=== PATIENT | male | born 1955 | race Caucasian/White ===

== ENCOUNTER 2019-11-13 12:26 | Emergency (ER) | payer BC ==
[2019-11-13] MEDS ORDERED: Ondansetron 4 MG/2 ML SDV IVPUSH ONE (12:45)
[2019-11-13] MEDS ORDERED: Sodium Chloride 0.9% 1,000 ML IV ONE (12:45)
[2019-11-13] MEDS ORDERED: Ondansetron 4 MG/2 ML SDV ONE ×2 (13:20→13:22)
[2019-11-13] MEDS ORDERED: NS + KCl 20mEq/L 1,000 ML ONE (13:39)
[2019-11-13] MEDS ORDERED: Potassium Chloride 20 MEQ Tab.ER PO ONE (13:44)
[2019-11-13] MEDS ORDERED: GI Cocktail Oral Solution 30 ML PO ONE (13:44)
[2019-11-13] MEDS: NS + KCl 20mEq/L 1,000 ML IV SCH ×2 (14:40→16:48)
[2019-11-13] MEDS ORDERED: diphenhydrAMINE 50 MG/ML SDV IVPUSH ONE (17:03)
[2019-11-13] MEDS ORDERED: HYDROmorphone 2 MG/ML Syringe IVPUSH ONE (17:03)
[2019-11-13] MEDS ORDERED: Loperamide 2 MG Cap PO ONE (17:04)
[2019-11-13] MEDS ORDERED: NS + KCl 20mEq/L 1,000 ML IV SCH (17:15)
[2019-11-13] MEDS ORDERED: HYDROmorphone 2 MG/ML SDV ONE (17:37)
[2019-11-13] MEDS ORDERED: diphenhydrAMINE 50 MG/ML SDV ONE (17:39)
[2019-11-13] MEDS ORDERED: Loperamide 2 MG Cap ONE (17:51)
--- NOTE | 2019-11-13 17:51 | EDM.PDOC ---
ED HPI GENERAL MEDICAL PROBLEM - General Chief Complaint: General Stated Complaint: DIARRHEA Time Seen by Provider: 11/13/19 12:40 - Related Data Allergies Allergy/AdvReac Type Severity Reaction Status Date / Time No Known Allergies Allergy Verified 11/13/19 12:30 Home Meds: Home Meds Ranitidine [Zantac] 75 mg PO DAILY 11/13/19 [History] Past Medical History Neurological History: Reports: Concussion Oncologic (Cancer) History: Reports: Other (See Below) Other Oncologic History: "Small spot on prostate"- states the Dr said they are just going to watch it Social & Family History - Tobacco Use Smoking Status *Q: Never Smoker Second Hand Smoke Exposure: No - Caffeine Use Caffeine Use: Reports: Coffee - Recreational Drug Use Recreational Drug Use: No ED ROS GENERAL - Review of Systems Review Of Systems: Comprehensive ROS is negative, except as noted in HPI. ED EXAM, GENERAL - Physical Exam Exam: See Below Exam Limited By: No Limitations General Appearance: Alert, WD/WN, No Apparent Distress Eye Exam: Bilateral Eye: EOMI, PERRL Ears: Normal External Exam, Hearing Grossly Normal Nose: Normal Inspection Throat/Mouth: Normal Inspection, Normal Lips, Other (mucosa on the dry side) Head: Atraumatic, Normocephalic Neck: Normal Inspection, Supple, Non-Tender, Full Range of Motion Respiratory/Chest: No Respiratory Distress, Lungs Clear, Normal Breath Sounds Cardiovascular: Regular Rate, Rhythm, No Gallop, No Murmur, No Rub GI/Abdominal: Soft, Non-Tender, Abnormal Bowel Sounds (hyperactive bowel sounds) Extremities: Non-Tender, No Pedal Edema, Normal Capillary Refill Neurological: Alert, Oriented, CN II-XII Intact, Normal Cognition, Normal Gait, No Motor/Sensory Deficits Psychiatric: Normal Affect, Normal Mood Skin Exam: Warm, Dry Lymphatic: No Adenopathy Course - Vital Signs Text/Narrative:: Yomi responded well to IV fluid repletion and electrolyte replacement. Discussed management as outpatient and reliable to return with persistent/ worsening sx's. Last Recorded V/S: Last Vital Signs Temp 99.2 F 11/13/19 12:26 Pulse 112 H 11/13/19 12:26 Resp 22 H 11/13/19 12:26 BP 135/90 11/13/19 12:26 Pulse Ox 96 11/13/19 12:26 - Orders/Labs/Meds Orders: Active Orders 24 hr Category Date Time Status NS + KCl 20mEq/L [Normal Saline with 20 mEq KCl] 1,000 Med 11/13/19 13:45 Active ml IV ASDIRECTED NS + KCl 20mEq/L [Normal Saline with 20 mEq KCl] 1,000 Med 11/13/19 17:15 Active ml IV ASDIRECTED Medication Orders Potassium Chloride/Sodium Chloride (Normal Saline With 20 Meq Kcl) 1,000 mls @ 500 mls/hr IV ASDIRECTED BARRY Last Admin: 11/13/19 16:48 Dose: 500 mls/hr Infusion: 11/13/19 16:40 Dose: 500 mls/hr Admin: 11/13/19 14:40 Dose: 500 mls/hr Potassium Chloride/Sodium Chloride (Normal Saline With 20 Meq Kcl) 1,000 mls @ 500 mls/hr IV ASDIRECTED [facility] Labs: Laboratory Tests 11/13/19 11/13/19 11/13/19 Range/Units 12:44 12:44 12:46 WBC (4.0-11.0) K/uL RBC (4.50-6.50) M/uL Hgb (13.0-18.0) g/dL Hct (40.0-54.0) % MCV (76-96) fL MCH (27.0-32.0) pg MCHC (31.0-35.0) g/dL RDW (11.0-16.0) % Plt Count (150-400) K/uL MPV (6.0-10.0) fL Neut % (Auto) (45.0-70.0) % Lymph % (Auto) (20.0-40.0) % Power % (Auto) (3.0-10.0) % Eos % (Auto) (1.0-5.0) % Baso % (Auto) (0.0-0.5) % Neut # (Auto) (2.00-7.50) K/uL Lymph # (Auto) (1.50-4.00) K/uL Power # (Auto) (0.20-0.80) K/uL Eos # (Auto) (0.04-0.40) K/uL Baso # (Auto) (0.02-0.10) K/uL Sodium 129 L (136-145) mmol/L Potassium 2.7 L* (3.5-5.1) mmol/L Chloride 92 L (98-107) mmol/L Carbon Dioxide 28.6 (21.0-32.0) mmol/L Anion Gap 11.1 (5.0-15.0) mmol/L BUN 23 (8-26) mg/dL Creatinine 1.08 (0.70-1.30) mg/dL Est Cr Clr Drug Dosing 67.73 mL/min Estimated GFR (MDRD) > 60 (>60) MLS/MIN BUN/Creatinine Ratio 21.3 (6-25) Glucose 134 H (74-100) mg/dL Calcium 7.8 L (8.5-10.1) mg/dL Magnesium (1.8-2.4) mg/dL Total Bilirubin 0.9 (0.0-1.0) mg/dL AST 288 H (15-37) U/L ALT 528 H (12-78) U/L Alkaline Phosphatase 43 L (46-116) U/L Troponin I < 0.017 (0.000-0.060) ng/mL C-Reactive Protein (0.0-3.0) mg/L Total Protein 5.7 L (6.4-8.2) g/dL Albumin 2.6 L (3.4-5.0) g/dL Globulin 3.1 (2.2-4.2) g/dL Albumin/Globulin Ratio 0.8 (0.8-2.0) Amylase 29 (25-115) U/L Urine Color Urine Appearance (CLEAR) Urine pH (5.0-8.0) Ur Specific Nemo (1.003-1.030) Urine Protein (NEGATIVE) mg/dL Urine Glucose (UA) (NEGATIVE) mg/dL Urine Ketones (NEGATIVE) mg/dL Urine Occult Blood (NEGATIVE) Urine Nitrite (NEGATIVE) Urine Bilirubin (NEGATIVE) Urine Urobilinogen (0.2-1.0) E.U./dL Ur Leukocyte Esterase (NEGATIVE) Urine RBC /HPF Urine WBC /HPF Ur Squamous Epith Cells /HPF Amorphous Sediment /HPF Urine Bacteria /HPF 11/13/19 11/13/19 11/13/19 Range/Units 12:46 12:46 13:43 WBC 3.4 L (4.0-11.0) K/uL RBC 5.31 (4.50-6.50) M/uL Hgb 16.4 (13.0-18.0) g/dL Hct 44.3 (40.0-54.0) % MCV 83 (76-96) fL MCH 30.9 (27.0-32.0) pg MCHC 37.0 H (31.0-35.0) g/dL RDW 12.9 (11.0-16.0) % Plt Count 164 (150-400) K/uL MPV 9.5 (6.0-10.0) fL Neut % (Auto) 58.8 (45.0-70.0) % Lymph % (Auto) 14.5 L (20.0-40.0) % Power % (Auto) 26.1 H (3.0-10.0) % Eos % (Auto) 0.3 L (1.0-5.0) % Baso % (Auto) 0.3 (0.0-0.5) % Neut # (Auto) 1.98 L (2.00-7.50) K/uL Lymph # (Auto) 0.49 L (1.50-4.00) K/uL Power # (Auto) 0.88 H (0.20-0.80) K/uL Eos # (Auto) 0.01 L (0.04-0.40) K/uL Baso # (Auto) 0.01 L (0.02-0.10) K/uL Sodium (136-145) mmol/L Potassium (3.5-5.1) mmol/L Chloride (98-107) mmol/L Carbon Dioxide (21.0-32.0) mmol/L Anion Gap (5.0-15.0) mmol/L BUN (8-26) mg/dL Creatinine (0.70-1.30) mg/dL Est Cr Clr Drug Dosing mL/min Estimated GFR (MDRD) (>60) MLS/MIN BUN/Creatinine Ratio (6-25) Glucose (74-100) mg/dL Calcium (8.5-10.1) mg/dL Magnesium 1.7 L (1.8-2.4) mg/dL Total Bilirubin (0.0-1.0) mg/dL AST (15-37) U/L ALT (12-78) U/L Alkaline Phosphatase (46-116) U/L Troponin I (0.000-0.060) ng/mL C-Reactive Protein 254.7 H (0.0-3.0) mg/L Total Protein (6.4-8.2) g/dL Albumin (3.4-5.0) g/dL Globulin (2.2-4.2) g/dL Albumin/Globulin Ratio (0.8-2.0) Amylase (25-115) U/L Urine Color Urine Appearance (CLEAR) Urine pH (5.0-8.0) Ur Specific Nemo (1.003-1.030) Urine Protein (NEGATIVE) mg/dL Urine Glucose (UA) (NEGATIVE) mg/dL Urine Ketones (NEGATIVE) mg/dL Urine Occult Blood (NEGATIVE) Urine Nitrite (NEGATIVE) Urine Bilirubin (NEGATIVE) Urine Urobilinogen (0.2-1.0) E.U./dL Ur Leukocyte Esterase (NEGATIVE) Urine RBC /HPF Urine WBC /HPF Ur Squamous Epith Cells /HPF Amorphous Sediment /HPF Urine Bacteria /HPF // Range/Units 15:38 WBC (4.0-11.0) K/uL RBC (4.50-6.50) M/uL Hgb (13.0-18.0) g/dL Hct (40.0-54.0) % MCV (76-96) fL MCH (27.0-32.0) pg MCHC (31.0-35.0) g/dL RDW (11.0-16.0) % Plt Count (150-400) K/uL MPV (6.0-10.0) fL Neut % (Auto) (45.0-70.0) % Lymph % (Auto) (20.0-40.0) % Power % (Auto) (3.0-10.0) % Eos % (Auto) (1.0-5.0) % Baso % (Auto) (0.0-0.5) % Neut # (Auto) (2.00-7.50) K/uL Lymph # (Auto) (1.50-4.00) K/uL Power # (Auto) (0.20-0.80) K/uL Eos # (Auto) (0.04-0.40) K/uL Baso # (Auto) (0.02-0.10) K/uL Sodium (136-145) mmol/L Potassium (3.5-5.1) mmol/L Chloride (98-107) mmol/L Carbon Dioxide (21.0-32.0) mmol/L Anion Gap (5.0-15.0) mmol/L BUN (8-26) mg/dL Creatinine (0.70-1.30) mg/dL Est Cr Clr Drug Dosing mL/min Estimated GFR (MDRD) (>60) MLS/MIN BUN/Creatinine Ratio (6-25) Glucose (74-100) mg/dL Calcium (8.5-10.1) mg/dL Magnesium (1.8-2.4) mg/dL Total Bilirubin (0.0-1.0) mg/dL AST (15-37) U/L ALT (12-78) U/L Alkaline Phosphatase (46-116) U/L Troponin I (0.000-0.060) ng/mL C-Reactive Protein (0.0-3.0) mg/L Total Protein (6.4-8.2) g/dL Albumin (3.4-5.0) g/dL Globulin (2.2-4.2) g/dL Albumin/Globulin Ratio (0.8-2.0) Amylase (25-115) U/L Urine Color Yellow Urine Appearance Clear (CLEAR) Urine pH 6.0 (5.0-8.0) Ur Specific Nemo >= 1.030 (1.003-1.030) Urine Protein 100 H (NEGATIVE) mg/dL Urine Glucose (UA) Negative (NEGATIVE) mg/dL Urine Ketones 15 H (NEGATIVE) mg/dL Urine Occult Blood Small H (NEGATIVE) Urine Nitrite Negative (NEGATIVE) Urine Bilirubin Small H (NEGATIVE) Urine Urobilinogen 0.2 (0.2-1.0) E.U./dL Ur Leukocyte Esterase Negative (NEGATIVE) Urine RBC 0-5 H /HPF Urine WBC 0-5 H /HPF Ur Squamous Epith Cells Moderate /HPF Amorphous Sediment Moderate /HPF Urine Bacteria Few /HPF Meds: Medications Generic Name Dose Route Start Last Admin Trade Name Freq PRN Reason Stop Dose Admin Potassium Chloride/Sodium Chloride 1,000 mls @ 500 mls/hr 11/13/19 13:45 16:48 Normal Saline With 20 Meq Kcl IV 500 mls/hr ASDIRECTED BARRY Administration Potassium Chloride/Sodium Chloride 1,000 mls @ 500 mls/hr 11/13/19 17:15 Normal Saline With 20 Meq Kcl IV ASDIRECTED BARRY Discontinued Medications Generic Name Dose Route Start Last Admin Trade Name Adelaida PRN Reason Stop Dose Admin Al Hydroxide/Mg Hydroxide 30 ml 11/13/19 13:44 11/13/19 14:20 Gi Cocktail PO 11/13/19 13:45 30 ml ONETIME ONE Administration Diphenhydramine HCl 25 mg 11/13/19 17:03 11/13/19 17:34 Benadryl IVPUSH 11/13/19 17:04 25 mg ONETIME ONE Administration Diphenhydramine HCl Confirm 11/13/19 17:39 11/13/19 17:42 Benadryl Administered 11/13/19 17:40 Not Given Dose 50 mg .ROUTE .STK-MED ONE Hydromorphone HCl 0.5 mg 11/13/19 17:03 11/13/19 17:39 Dilaudid IVPUSH 11/13/19 17:04 0.5 mg ONETIME ONE Administration Hydromorphone HCl Confirm 11/13/19 17:37 11/13/19 17:42 Dilaudid Administered 11/13/19 17:38 Not Given Dose 2 mg .ROUTE .STK-MED ONE Sodium Chloride 1,000 mls @ 999 mls/hr 11/13/19 12:45 11/13/19 13:03 Normal Saline IV 11/13/19 13:45 999 mls/hr .BOLUS ONE Administration Potassium Chloride/Sodium Chloride Confirm 11/13/19 13:39 11/13/19 14:13 Normal Saline With 20 Meq Kcl Administered 11/13/19 13:40 Not Given Dose 1,000 mls @ as directed .ROUTE .STK-MED ONE Loperamide HCl 4 mg 11/13/19 17:04 11/13/19 17:44 Imodium PO 11/13/19 17:05 4 mg ONETIME ONE Administration Loperamide HCl Confirm 11/13/19 17:51 11/13/19 18:19 Imodium Administered 11/13/19 17:52 Not Given Dose 4 mg .ROUTE .STK-MED ONE Magnesium Oxide 400 mg 11/13/19 18:35 11/13/19 18:55 Magnesium Oxide PO 11/13/19 18:36 400 mg ONETIME ONE Administration Ondansetron HCl 8 mg 11/13/19 12:45 11/13/19 13:16 Zofran IVPUSH 11/13/19 12:46 8 mg ONETIME ONE Administration Ondansetron HCl Confirm 11/13/19 13:20 11/13/19 14:13 Zofran Administered 11/13/19 13:21 Not Given Dose 4 mg .ROUTE .STK-MED ONE Ondansetron HCl Confirm 11/13/19 13:22 11/13/19 14:13 Zofran Administered 11/13/19 13:23 Not Given Dose 4 mg .ROUTE .STK-MED ONE Potassium Chloride 40 meq 11/13/19 13:44 11/13/19 15:19 Klor-Con M20 PO 11/13/19 13:45 40 meq ONETIME ONE Administration Departure - Departure Time of Disposition: 19:00 Disposition: Home, Self-Care 01 Condition: Good Clinical Impression: Diarrhea Qualifiers: Diarrhea type: unspecified type Qualified Code(s): R19.7 - Diarrhea, unspecified - Discharge Information Instructions: Diarrhea, Adult, Viral Gastroenteritis, Adult, [id number] Referrals: PCP,None [Primary Care Provider] - Forms: ED Department Discharge Additional Instructions: Take it easy and maintain your fluid intake. Return or come by the clinic with any ongoing issues. Take care. Sincerely, Junaid Polo MD Sepsis Event Note - Focused Exam Vital Signs: Vital Signs Temp Pulse Resp BP Pulse Ox 11/13/19 12:26 99.2 F 112 H 22 H 135/90 96 Date Exam was Performed: 11/13/19 Time Exam was Performed: 19:11 - My Orders Last 24 Hours: My Active Orders 11/13/19 13:45 NS + KCl 20mEq/L [Normal Saline with 20 mEq KCl] 1,000 ml IV ASDIRECTED 11/13/19 17:15 NS + KCl 20mEq/L [Normal Saline with 20 mEq KCl] 1,000 ml IV ASDIRECTED - Assessment/Plan Last 24 Hours: My Active Orders 11/13/19 13:45 NS + KCl 20mEq/L [Normal Saline with 20 mEq KCl] 1,000 ml IV ASDIRECTED 11/13/19 17:15 NS + KCl 20mEq/L [Normal Saline with 20 mEq KCl] 1,000 ml IV ASDIRECTED
[2019-11-13] MEDS ORDERED: Magnesium Oxide 400 MG Tab PO ONE (18:35)
== END 2019-11-13 18:50 | disposition home or self-care (01) ==
LOC: LB.ED 12:26
DX: R19.7 Diarrhea, unspecified (principal)
CPT/HCPCS: 36415; 80053; 81001; 82150; 83735; 84484; 85025; 86140; 96361; 96365; 96366; 96375; 99283; 99284-25; A9270-GY; J1170; J1200; J2405; J3480; J7030

== ENCOUNTER 2019-11-14 14:22 | Emergency (ER) | payer BC ==
[2019-11-14] MEDS: NS + KCl 20mEq/L 1,000 ML IV SCH ×2 (16:00→18:47)
--- NOTE | 2019-11-14 17:25 | CT ---
DATE OF SERVICE: 11/14/2019 CLINICAL DATA: Abdominal Pain Unenhanced abdomen and pelvic CT: Multislice acquisition through the abdomen and pelvis without IV or oral contrast was performed. No priors. There are small bilateral pleural effusions. There are areas of consolidation in both lung bases consistent with atelectasis with consolidation or pneumonia. There is a pleural-based nodule in the right cardiophrenic angle with irregular margins. Followup is recommended. There is a small hiatal hernia. There is fluid within the distal esophagus most likely secondary to GE reflux. The liver is normal size. There is a 7 mm low-density lesion within the left lobe of the liver medial segment most likely representing a cyst. No other focal hepatic lesions. The gallbladder appears normal. No calcified gallstones. The spleen appears normal. The pancreas appears normal. The right and left adrenals appear normal. The right and left kidneys appear normal. No nephrocalcinosis or nephrolithiasis. No hydronephrosis or hydroureter. The bladder is partially fluid-filled. It appears normal. The prostate is grossly enlarged. There are calcifications within the prostate consistent with chronic prostatitis. No evidence of appendicitis. There are multiple distended, gas and fluid filled loops of small bowel throughout the abdomen and pelvis. There is a transition zone in the ileum. These findings are consistent with a small bowel obstruction. There are scattered air-fluid levels throughout the colon. It is not distended. No free air. There is a moderate amount fo free fluid noted within the pelvis. No adenopathy. No aortic aneurysm. There is a small fat-containing umbilical hernia. No other significant findings. Impression: Findings consistent with small bowel obstruction. Free fluid noted within the pelvis. No free air. Other findings as discussed above. MTDD
--- NOTE | 2019-11-14 18:15 | EDM.PDOC ---
ED HPI GENERAL MEDICAL PROBLEM - General Chief Complaint: General Stated Complaint: DIARRHEA, LOW K+ Time Seen by Provider: 11/14/19 14:44 Abdominal Pain Score (Numeric/FACES): 4 - Related Data Allergies Allergy/AdvReac Type Severity Reaction Status Date / Time No Known Allergies Allergy Verified 11/13/19 12:30 Home Meds: Home Meds Ranitidine [Zantac] 75 mg PO DAILY 11/13/19 [History] Past Medical History Neurological History: Reports: Concussion Oncologic (Cancer) History: Reports: Other (See Below) Other Oncologic History: "Small spot on prostate"- states the Dr said they are just going to watch it Social & Family History - Caffeine Use Caffeine Use: Reports: Coffee ED ROS GENERAL - Review of Systems Review Of Systems: See Below (See scanned dictation) ED EXAM, GENERAL - Physical Exam Exam: See Below (See scanned report) Course - Vital Signs Last Recorded V/S: Last Vital Signs Temp 98.8 F 11/14/19 18:17 Pulse 105 H 11/14/19 18:17 Resp 16 11/14/19 18:17 BP 117/66 11/14/19 18:17 Pulse Ox 95 11/14/19 18:17 Orthostatic Blood Pressure [ 120/71 Supine] Orthostatic Blood Pressure [ 119/77 Standing] Orthostatic Blood Pressure [ 120/76 Sitting] - Orders/Labs/Meds Labs: Laboratory Tests 11/14/19 11/14/19 11/14/19 Range/Units 03:55 03:55 03:55 WBC 4.1 D (4.0-11.0) K/uL RBC 4.71 (4.50-6.50) M/uL Hgb 14.5 (13.0-18.0) g/dL Hct 39.3 L (40.0-54.0) % MCV 83 (76-96) fL MCH 30.8 (27.0-32.0) pg MCHC 36.9 H (31.0-35.0) g/dL RDW 12.7 (11.0-16.0) % Plt Count 150 (150-400) K/uL MPV 9.2 (6.0-10.0) fL Neut % (Auto) 56.2 (45.0-70.0) % Lymph % (Auto) 12.3 L (20.0-40.0) % Amador % (Auto) 30.3 H (3.0-10.0) % Eos % (Auto) 0.7 L (1.0-5.0) % Baso % (Auto) 0.5 (0.0-0.5) % Neut # (Auto) 2.32 (2.00-7.50) K/uL Lymph # (Auto) 0.51 L (1.50-4.00) K/uL Amador # (Auto) 1.25 H (0.20-0.80) K/uL Eos # (Auto) 0.03 L (0.04-0.40) K/uL Baso # (Auto) 0.02 (0.02-0.10) K/uL Sodium 128 L (136-145) mmol/L Potassium 3.2 L (3.5-5.1) mmol/L Chloride 94 L (98-107) mmol/L Carbon Dioxide 25.8 (21.0-32.0) mmol/L Anion Gap 11.4 (5.0-15.0) mmol/L BUN 17 D (8-26) mg/dL Creatinine 0.82 D (0.70-1.30) mg/dL Est Cr Clr Drug Dosing TNP Estimated GFR (MDRD) > 60 (>60) MLS/MIN BUN/Creatinine Ratio 20.7 (6-25) Glucose 109 H (74-100) mg/dL Lactic Acid 1.2 (0.4-2.0) mmol/L Calcium 7.6 L (8.5-10.1) mg/dL Total Bilirubin 0.8 (0.0-1.0) mg/dL AST 70 H (15-37) U/L ALT 251 H (12-78) U/L Alkaline Phosphatase 54 (46-116) U/L Total Protein 5.3 L (6.4-8.2) g/dL Albumin 2.0 L (3.4-5.0) g/dL Globulin 3.3 (2.2-4.2) g/dL Albumin/Globulin Ratio 0.6 L (0.8-2.0) Meds: Medications Discontinued Medications Generic Name Dose Route Start Last Admin Trade Name Freq PRN Reason Stop Dose Admin Potassium Chloride/Sodium Chloride 1,000 mls @ 500 mls/hr 11/14/19 15:45 18:47 Normal Saline With 20 Meq Kcl IV 250 mls/hr ASDIRECTED BARRY Administration Departure - Departure Time of Disposition: 19:15 Disposition: DC/Tfer to Acute Hospital 02 Clinical Impression: Small bowel obstruction - Discharge Information *PRESCRIPTION DRUG MONITORING PROGRAM REVIEWED*: No *COPY OF PRESCRIPTION DRUG MONITORING REPORT IN PATIENT MARGARITO: No Referrals: Yrn Chapman MD [Primary Care Provider] - Forms: ED Department Discharge Sepsis Event Note - Focused Exam Date Exam was Performed: 11/18/19 Time Exam was Performed: 09:46
--- NOTE | 2019-11-14 20:29 | ER ---
CHIEF COMPLAINT: Nausea, vomiting, diarrhea, and abdominal pain. HISTORY OF PRESENT ILLNESS: The patient is a 64-year-old white male, who was seen yesterday here in the ED after having problems for 4 days with nausea, vomiting, diarrhea, and abdominal pain. The patient was diagnosed with viral diarrhea/gastroenteritis yesterday. He went home, but returns today feeling quite weak. Yesterday, during his evaluation, he was found to be hypokalemic and was therefore treated with normal saline with 20 KCl x1 L. He reports today he is not feeling well, feels weak and shaky with severe stomach cramps. PAST MEDICAL HISTORY: Concussion with history of small spot in his prostate, which the urologist said he is just going to watch for now. 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 He does drink coffee. He denies recreational drug use. ALLERGIES: NO KNOWN DRUG ALLERGIES. CURRENT MEDICATIONS: Ranitidine 75 mg daily. The patient also takes an [id number] cholesterol medication. REVIEW OF SYSTEMS: GENERAL: No fever or chills. RESPIRATORY: No cough or shortness of breath. CARDIAC: No chest pain. GI: Positive abdominal pain for the past 4 days. Initially, he had more abdominal pain and some vomiting, but this is now cleared. He did have 1 episode of vomiting yesterday. Diarrhea has been watery. No blood in the stool. PHYSICAL EXAMINATION: VITAL SIGNS: Temp 98.9, pulse 110, respirations 20, blood pressure 120/63, O2 saturation 96% on room air. GENERAL: The patient is a thin-appearing 64-year-old white male, in mild- to-moderate distress secondary to abdominal discomfort and bloating. HEENT: Within normal limits. NECK: Supple without JVD. CHEST: Nontender. LUNGS: Clear to auscultation. HEART: Tachycardic without murmur. ABDOMEN: Mildly distended and tympanitic with decreased bowel sounds. EXTREMITIES: Nontender. Normal range of motion. BACK: Without CVA tenderness. LABORATORY DATA: Lactic acid 1.2. WBC 4100, H and H 14/39, platelets 150,000. BMP: Sodium 128, potassium 3.2 chloride 94, anion gap 11.4, glucose 109, BUN 17, creatinine 0.82, total protein 5.3, calcium 7.6, alkaline phosphatase 54, SGPT 251. Yesterday's CRP level 248. IMAGING: CT scan of the abdomen and pelvis without contrast was obtained. There were small bilateral pleural effusions. Consolidation of both lung bases consistent with atelectasis with consolidation or pneumonia. Pleural-based nodules in costophrenic angle. There were multiple distended gas and fluid-filled loops of small bowel throughout the abdomen and pelvis. There was a transition zone in the ileum. Findings are consistent with small-bowel obstruction. There were scattered air-fluid levels throughout the colon, it is not distended. DIAGNOSES: 1. Small bowel obstruction. 2. Mild hypokalemia. PLAN: The patient initially was treated with normal saline with 20 mEq KCl/L. A total of 2 L was given prior to transfer. The patient had an NG tube placed with return of large amount of brownish liquid. The case was discussed with Dr. Shaw at [facility], and he accepted the patient in transfer. The patient was transferred in stable and improved condition. CAESAR/MELISSA /[id number]
== END 2019-11-14 21:30 ==
LOC: LB.ED 14:22
DX: K56.609 Unspecified intestinal obstruction, unspecified as to partial versus complete obstruction (principal); E87.6 Hypokalemia
CPT/HCPCS: 36415; 74176; 80053; 83605; 85025; 87493; 87507; 96365; 99283; 99285-25; J3480

== ENCOUNTER 2022-02-10 10:03 | Emergency (ER) | payer MEDICARE, BC ==
[2022-02-10] MEDS ORDERED: Sodium Chloride 0.9% 10 ML Syringe FLUSH PRN (11:29)
[2022-02-10] MEDS ORDERED: Sodium Chloride 0.9% 500 ML IV ONE (11:29)
[2022-02-10 12:29] LABS: ESTIMATED GFR > 60 MLS/MIN (>60)
== END 2022-02-10 13:37 | disposition home or self-care (01) ==
LOC: LB.ED 10:03
DX: A08.4 Viral intestinal infection, unspecified (principal); Z79.899 Other long term (current) drug therapy; Z20.822 Contact with and (suspected) exposure to COVID-19
CPT/HCPCS: 36415; 80053; 83690; 85025; 99284; J7040; U0002; 99282